=== PATIENT | female | born 1945 | race Two or more races ===

== ENCOUNTER → 2018-08-25 | Emergency (ER) | payer BC ==
[~2018-08-25] VITALS: Ht 157.5 cm; Wt 85.7 kg
[~2018-08-25] MED LIST: LIPITOR40 MG; METOPROLOL SUCC25 MG; PAXIL CR25 MG; TROSPIUM CHLORI20 MG; VIVLODEX10 MG
== END | disposition home or self-care (01) ==
LOC: EDSEX 14:35 → ER 14:35
DX: I63.89 Other cerebral infarction (principal); R41.0 Disorientation, unspecified; I10 Essential (primary) hypertension